=== PATIENT | female | born 1970 | race Asian ===

== ENCOUNTER 2019-01-08 04:56 | Emergency (ER) | payer SELFPAY ==
[~2019-01-08] VITALS: Ht 172.7 cm; Wt 73.0 kg
[2019-01-08] MEDS ORDERED: SODIUM CHLORIDE 0.9% 1,000 ML IV ONE ×2 (06:11→07:15)
[2019-01-08 06:30] LABS: BASOPHILS % 0.3 % (0.0-2.0); EOSINOPHILS % 2.2 % (0.0-5.0); HEMATOCRIT. 39.2 % (36.0-48.0); HEMOGLOBIN. 13.3 g/dL (12.0-16.0); LYMPHOCYTES % 10.1 % (20.0-50.0); MEAN CORPUSCULAR HEMOGLOBIN 26.8 pg (28.0-32.0); MEAN CORPUSCULAR VOLUME 79.1 fL (81.0-99.0); MEAN PLATELET VOLUME 8.7 fl (7.4-10.4); MONOCYTES % 0.3 % (2.0-8.0); NEUTROPHILS % 87.1 % (40.0-76.0); PLATELET 291 x1000/uL (130-400); RED BLOOD CELL COUNT 4.95 mill/uL (4.2-5.4); RED CELL DISTRIBUTION WIDTH 13.6 % (11.6-14.6)
[2019-01-08 06:32] LABS: CHLORIDE 99 mEq/L (98-107)
[2019-01-08 06:39] LABS: BETA HYDROXYBUTYRATE 0.1 mMol/L (0.0-0.3)
[2019-01-08 06:51] LABS: CLARITY URINE CLOUDY (CLEAR); COLOR URINE YELLOW (YELLOW); KETONES URINE NEGATIVE (NEGATIVE); LEUKOCYTE ESTERASE URINE 1+ (NEGATIVE); NITRITE URINE NEGATIVE (NEGATIVE); OCCULT BLOOD URINE 1+ (NEGATIVE); PROTEIN URINE 3+ (NEGATIVE); SPECIFIC GRAVITY URINE 1.034 (1.005-1.030); UROBILINOGEN URINE 0.2 E.U./dL (0.2-1.0)
[2019-01-08] MEDS ORDERED: CEFTRIAXONE 1 G PREMIX 50 ML IV ONE (08:00)
[2019-01-08 09:23] VITALS: BP 121/64
== END 2019-01-08 09:15 | disposition home or self-care (01) ==
LOC: ER 04:56
DX: E11.65 Type 2 diabetes mellitus with hyperglycemia (principal); R50.9 Fever, unspecified; R06.02 Shortness of breath; R30.0 Dysuria; R07.9 Chest pain, unspecified
CPT/HCPCS: 36415; 71045; 80053; 81003; 81025; 82010; 83605; 85025; 87077; 87086; 87186; 93005; 96361; 96365; 99284; J0696; J7030; Z7610